=== PATIENT | female | born 1980 | race Caucasian/White ===

== ENCOUNTER → 2017-11-16 13:52 | Outpatient (CLI) | payer BC, SELFPAY ==
--- NOTE | 2017-11-16 13:54 | US_ITS ---
US transvaginal HISTORY: ITS.REASON: US T/V- Heavy Bleeding ORDERING PHYSICIAN: Shani Murray MD PATIENT AGE: 37 years Comparison: None FINDINGS: The uterus is retroverted and measures 9 x 4 x 6 cm. Endometrium is thickened measuring up to 14 mm in thickness. Defects are present along each aspect of the uterus consistent with scars. These defects result in a somewhat irregular contour of the uterine wall anteriorly and of the underlying endometrial cavity The right ovary is 3.3 x 2.7 cm containing small follicles. The left ovary is 2.6 x 2.7 cm and contains small follicles.. Ovarian blood flow is present. No dominant cyst. No cul-de-sac fluid. IMPRESSION: Retroverted uterus with endometrial thickening
[2017-11-16 15:09] LABS: Basophils # 0.1 K/mm3 (0-0.2); Basophils % 0.8 % (0.1-2.0); Eosinophils # 0.2 K/mm3 (0.0-0.4); Eosinophils % 3.9 % (0.1-12.0); Hematocrit 40.7 % (37.0-47.0); Hemoglobin 12.8 g/dL (12.2-16.2); Lymphocytes # 1.9 K/mm3 (0.7-4.5); Lymphocytes % 32.7 K/mm3 (10-50); Mean Corpuscular HGB Conc 31.3 g/dL (31.8-35.4); Mean Corpuscular Hemoglobin 27.6 pg (27.0-31.2); Mean Corpuscular Volume 88.3 fl (81-99); Mean Platelet Volume 7.2 fl (7.4-10.4); Monocytes # 0.3 K/mm3 (0.1-1.0); Monocytes % 5.9 % (1.7-9.3); Neutrophils # 3.2 K/mm3 (1.8-7.8); Neutrophils % 56.6 % (37.0-80.0); Platelet Count 282 K/mm3 (142-424); Red Blood Count 4.61 M/mm3 (4.20-5.40); Red Cell Distribution Width 13.9 % (11.5-17.5); White Blood Count 5.7 K/mm3 (4.8-10.8)
[2017-11-16 17:44] LABS: Thyroid Stimulating Hormone 2.55 uIU/ml (0.358-3.740)
[2017-11-18 20:25] LABS: FSH 2.5 mIU/mL (.)
== END ==
PROVIDERS: PCP Family Medicine; Visit Provider Obstetrics & Gynecology
DX: N92.0 Excessive and frequent menstruation with regular cycle (principal)
CPT/HCPCS: 36415; 76830; 83001; 84443; 85025

== ENCOUNTER → 2017-12-22 13:54 | Outpatient (CLI) | payer BC, SELFPAY ==
--- NOTE | 2017-12-22 14:18 | US_ITS ---
US Arterial Ankle Brachial Ind History: Bilateral claudication ORDERING PHYSICIAN: Rod Gunter MD PATIENT AGE: 37 years TECHNIQUE: Segmental pressures obtained of both right and left leg. These are compared to brachial blood pressure to yield index at each level sampled including summary FATMATA. The data sheets from the procedure are available in PACS FINDINGS Rest study only performed today No prior studies available for comparison. Blood pressures reported are in millimeters mercury. RIGHT LEG FATMATA = 1.0. RIGHT LEG TBI=0.9 Brachial BP: 107 Thigh BP: 1:15 Calf BP: 120 Ankle PT: 120 Ankle DP : 116 Digit =107 LEFT LEG FATMATA = 1.0 LEFT LEG TBI= 0.9 Brachial BPD: 114 Thigh BP: 119 Calf BP: 121 Ankle PT:123 Ankle DP: 128 Digit = 105 Pulses and waveforms: Normal IMPRESSION: The ABIs as reported above are within normal limits. Waveforms and pulses are also unremarkable.
== END ==
PROVIDERS: PCP Family Medicine; Visit Provider Family Medicine
DX: M79.604 Pain in right leg (principal)
CPT/HCPCS: 93922

== ENCOUNTER → 2018-01-08 15:34 | Outpatient (CLI) | payer BC, SELFPAY ==
--- NOTE | 2018-01-08 15:39 | XR_ITS ---
EXAM: XR lumbar spine min 4V HISTORY: Low back pain ITS.REASON: SCIATICA OF RT SIDE ORDERING PHYSICIAN: Rod Gunter MD PATIENT AGE: 37 years COMPARISON: None FINDINGS: Normal alignment. No fracture or dislocation. No lytic or blastic change. No significant degenerative change. The disc spaces are preserved. IMPRESSION: No acute finding
== END ==
PROVIDERS: PCP Family Medicine; Visit Provider Family Medicine
DX: M54.31 Sciatica, right side (principal)
CPT/HCPCS: 72110

== ENCOUNTER → 2018-01-18 10:32 | Outpatient (CLI) | payer BC, SELFPAY ==
[2018-01-18 11:03] LABS: Basophils % 0.4 % (0.1-2.0); Eosinophils # 0.1 K/mm3 (0.0-0.4); Eosinophils % 2.1 % (0.1-12.0); Hematocrit 33.8 % (37.0-47.0); Hemoglobin 11.2 g/dL (12.2-16.2); Lymphocytes # 1.4 K/mm3 (0.7-4.5); Lymphocytes % 29.7 K/mm3 (10-50); Mean Corpuscular HGB Conc 33.2 g/dL (31.8-35.4); Mean Corpuscular Hemoglobin 28.4 pg (27.0-31.2); Mean Corpuscular Volume 85.7 fl (81-99); Mean Platelet Volume 7.1 fl (7.4-10.4); Monocytes # 0.3 K/mm3 (0.1-1.0); Monocytes % 5.9 % (1.7-9.3); Neutrophils % 61.9 % (37.0-80.0); Platelet Count 267 K/mm3 (142-424); Red Blood Count 3.94 M/mm3 (4.20-5.40); Red Cell Distribution Width 14.3 % (11.5-17.5); White Blood Count 4.9 K/mm3 (4.8-10.8)
[2018-01-18 11:59] LABS: Anion Gap 13.6 mEq/L (5-15); Blood Urea Nitrogen 12 mg/dL (7-18); Calcium 8.8 mg/dL (8.5-10.1); Carbon Dioxide 25 mmol/L (21.0-32.0); Chloride 107 mmol/L (98-107); Creatinine,Serum 0.96 mg/dL (0.55-1.02); Estimated Glomerular Filt Rate 66 ml/min (>60); GFR (African American) 80 ML/MIN (>60); Glucose 89 mg/dL (74-106); Potassium 3.6 mmoL/L (3.5-5.1); Sodium 142 mmol/L (136-145)
[2018-01-18 12:23] LABS: HCG Qualitative, Serum Negative (Negative)
== END ==
PROVIDERS: Visit Provider Obstetrics & Gynecology
DX: Z01.818 Encounter for other preprocedural examination (principal)
CPT/HCPCS: 36415; 80048; 84703; 85025

== ENCOUNTER → 2018-01-20 12:46 | Outpatient (CLI) | payer BC, SELFPAY | PROVIDERS: Visit Provider Obstetrics & Gynecology | DX: Z01.818 Encounter for other preprocedural examination (principal) | CPT/HCPCS: 36415; 86850 ==

== ENCOUNTER 2018-01-22 06:09 | Inpatient (IN) ==
--- NOTE | 2018-01-22 07:19 | Progress Note ---
[facility] Anesthesia Checklist - Patient Identification Patient Identification: Arm Band, Verbal (Name & ) - Structural Data Admitted From: Home Planned Operative Procedure/s: STEPHANIE, possible BSO Consent for Planned Operative Procedure(s) Verified: Yes Verified Documents: Surgical Consent, History and Physical - NPO Status Verified Time NPO: 23:30 - Additional verifications Patient : No Anesthesia Reactions: No - Airway Assessment C-Spine Mobility Assessed: Yes TMJ Mobility Assessed: Yes Dentition: Dentures-good fit (Upper denture) - Neurological Assessment Level of Consciousness: Awake Hx Seizures: No Numbness or tingling in extremities: No - Anesthesia Plan Anesthesia Risk discussed: Yes Anesthesia Plan: Verified ASA Class: III Anesthesia Type: General [facility] Anesthesia HX I have reviewed the patient's past medical history: Yes Medical History: Reports:: Anxiety, Asthma, Depression, Supraventricular Tachycardia Denies:: Cancer, Diabetes Mellitus Type 1, Diabetes Mellitus Type 2 ( gestational diabetes), MRSA, Seizures Other Medical History: Reports: FibromyalgiaComment Only: Blood Transfusion Reaction (N/A) Laterality Cases: Bilateral: Tonsillectomy, Other Other Surgeries: Yes: Appendectomy, , Dilation and Curettage, Other Amputation: No Fractures: No *Family Hx:: Diabetes, Cancer, Hypertension, Stroke, Thyroid Disorder
--- NOTE | 2018-01-22 10:34 | Progress Note ---
[facility] Anesthesia Record Part I Intake, IV Amount: 1,500 Estimated blood loss (mL): 350 Urine output (mL): 0 Blood Pressure: 139/79 SaO2: 98 Pulse Rate: 97 Respiratory Rate: 12 Temperature: 97.5 F Patient is:: Awake, Drowsy, Stable Stable to PACU at:: 10:25
--- NOTE | 2018-01-22 10:34 | Progress Note ---
[facility] Anesthesia Record Part II Discharge Time: 10:55 Destination: Medical Surgical Department PACU nurse assessment reviewed?: Yes Patient Condition:: Good Anesthesia Complications:: None
--- NOTE | 2018-01-22 10:51 | Operative Note ---
Date of procedure: 01/22/18 Pre-op Diagnosis:: 1. HMB 2. Severe dysmenorrhea 3. Chronic pelvic pain 4. Fibromyalgia 5. Previous c section x 4 6. Previous ruptured ectopic 7. Abdominal/ pelvic adhesions 8. Antiphospholipid antibody syndrome 9. Anemia from chronic blood loss 10. Previous (failed) endometrial ablation Post-op Diagnosis:: 1. HMB 2. Severe dysmenorrhea 3. Chronic pelvic pain 4. Fibromyalgia 5. Previous c section x 4 6. Previous ruptured ectopic 7. Abdominal/ pelvic adhesions 8. Antiphospholipid antibody syndrome 9. Anemia from chronic blood loss 10. Previous (failed) endometrial ablation 11. Endometriosis Procedure performed:: 1. STEPHANIE 2. RSO 3. Lysis of dense pelvic and abdominal adhesions Surgeon:: Shani Murray MD Casket Assembler(s):: Ulises Conde MD BLOCK MACHINE OPERATOR:: Other Anesthesia: GETA (+ TAP block postoperatively) Estimated blood loss (mL): 350 Operative findings:: Dense pelvic/abdominal adhesions, with anterior uterus adhesed >50% to abdominal wall, diffuse endometriosis of right ovary/fallopian tube and within pelvis, grossly normal appearing left ovary Operative note:: The patient was taken to the operating room where general anesthesia was administered without difficulty. She was prepped and draped in the normal sterile fashion in the supine position. A Pfannenstiel skin incision was made with a scalpel and the area of prior incisions, and extended down to the fascia sharply. The fascia was noticed to be densely adhesed to the underlying peritoneum and omental structures, and dissection of these adhesions in order to gain access into the peritoneal cavity was extensive and took approximately 25 minutes. Once the peritoneal cavity was entered safely the fascia was able to be extended further in the lateral direction, and the rectus muscles were sharply dissected off the fascia. Additional omental adhesions were taken down at this time in order to safely place an abdominal retractor; this dissection took approximately 15 minutes. Because the uterus was densely adhesed to the anterior abdominal wall retractor could not be placed initially due to the inability to place the inferior aspect of the retractor intraperitoneally. Dissection of the uterus off of the abdominal wall was carried out over the next 20 minutes with careful attention to the bladder area; no complications were encountered during this dissection. Once the uterus was freed from the abdominal wall and an O'Nathan-O'Aguirre retractor placed and the bowel was packed with moist laparotomy sponges. A double-tooth tenaculum was placed on the uterine fundus and the uterus was elevated. Survey of the remainder of the pelvis showed a diffuse amount of endometriosis with an extensive amount on the right ovary which however the left ovary appeared grossly normal. Bladder adhesions over the lower uterine segment were moderate but were taken down with success using both blunt and sharp dissection of the next 10 minutes. At this time the round ligaments were doubly clamped transected and suture ligated with 0 Vicryl. The ureters were identified as they course over the pelvic brim and was noted to be well out of the operative field. The infundibulopelvic ligaments were doubly clamped transected and suture ligated with 0 Vicryl; the decision was made at this time to remove the right ovary due to the extensive amount of the endometriosis and the finding that much of this much of these lesions were overlying vascular structures that were not amenable to cautery. The right ovary and fallopian tubes were removed and sent for pathology. The anterior leaf of the broad ligament was dissected medially and inferiorly bilaterally and the bladder flap was created digitally. Bladder flap was dissected as sufficiently as necessary and the attention was then turned to the uterine arteries were skeletonized bilaterally doubly clamped transected and suture ligated with 0 Vicryl. The hysterectomy proceeded in standard fashion with a series of progressive Shahid inferior clamps down through the uterine body until the cardinal and uterosacral ligaments were reached. Once the tissue had been transected below the level of the cervix and the vaginal mucosa was entered the uterus and cervix were amputated with scissors and a specimen was sent for pathology. The vaginal cuff was closed with 0 Vicryl revealed sutures on the angle which were transfixed to the ipsilateral cardinal and uterosacral ligaments. The remainder of the foot was closed with 0 Vicryl interrupted sutures. The pelvis and abdomen were copiously irrigated with warm normal saline and cleared of all clot and debris. There is a moderate amount of oozing from various structures that was treated with a combination of Juan and Surgicel. The surgical site was observed for a prolonged period of time to ensure hemostasis and no active bleeding was noted. All instruments and laparotomy sponges were then removed from her pelvis and abdomen the peritoneum was closed with 2-0 Vicryl in a running fashion. The fascia was closed with 1-0 Vicryl in a running fashion. The subcutaneous fat was closed with 2-0 Vicryl in an interrupted fashion, and the skin was closed with norma. The patient tolerated the procedure well sponge lap needle and instrument counts wee correct 2; she was taken to the recovery room awake and in stable condition. Total time spent in lysis of dense adhesions: 60 minutes Condition: stable Disposition: PACU Specimens:: uterus, cervix, right ovary, right fallopian tube Complications:: none
--- NOTE | 2018-01-22 14:17 | Pharmacy Consult Notes ---
[facility] Pharmacy VTE Monitoring - Patient Demographics Admission date: 01/22/18 Report Date: 01/22/18 Time: 14:17 Allergies/Adverse Reactions: Patient Allergies venlafaxine [From Effexor] Allergy (Severe, Verified 01/22/18 06:30) Anaphylaxis Latex, Natural Rubber Allergy (Verified 01/22/18 06:30) Itching metoclopramide [From Reglan] Adverse Reaction (Severe, Verified 01/22/18 06:30) Irritability,chest pain,nausea,shortness of breath aripiprazole [From Abilify] Adverse Reaction (Verified 01/22/18 06:30) "Lost Strength became a Zombie" Penicillins Adverse Reaction (Verified 01/22/18 06:30) Nausea Only promethazine Adverse Reaction (Verified 01/22/18 06:30) Irritability Height: 1.7 m Weight: 83.915 kg Patient Problems: Current Active Problems Anemia due to blood loss, chronic (Acute) Antiphospholipid antibody syndrome (Acute) Intra-abdominal adhesions (Acute) Pelvic adhesions (Acute) Endometriosis (Acute) - Prophylaxis VTE Prophylaxis Ordered?: Yes Types of VTE Prophylaxis: IPCS Thigh High Location of Applied Device: Bilateral Lower Extremeties - VTE Diagnosis Confirmed Treatment or plan recommended: Continue Current Treatment
[2018-01-23 05:43] LABS: Hematocrit 26.7 % (37.0-47.0); Hemoglobin 8.6 g/dL (12.2-16.2)
[2018-01-23 05:53] LABS: Anion Gap 7.6 mEq/L (5-15); Calcium 7.6 mg/dL (8.5-10.1); Potassium 3.6 mmoL/L (3.5-5.1)
--- NOTE | 2018-01-23 16:01 | Progress Note ---
Internal Medicine - PN: Subj *Date: 01/23/18 *Time: 15:56 Interval history: POD #1 STEPHANIE/RSO, MATT No complaints this am Tolerating po and ambulating Sawyer recently removed but has not voided yet Sufficient pain control Hgb 8.6 this am (admission dose 11.2 but likely hemoconcentrated) Intra-operative EBL 350cc Needs to have anti-psychotic restarted Lovenox prophylaxis for anti-phospholipid antibody syndrome Exam Vital signs and Labs for Last 24 Hours: Temp Pulse Resp BP Pulse Ox 97 F L 64 18 115/67 100 01/23/18 12:45 01/23/18 12:45 01/23/18 12:45 01/23/18 12:45 01/23/18 12:45 Laboratory Results - last 24 hr 01/22/18 07:50: Urine Color Yellow, Urine Appearance Clear, Urine pH 6.0, Ur Specific [place] 1.025, Urine Protein Negative, Urine Glucose (UA) Negative, Urine Ketones Negative, Urine Blood Negative, Urine Nitrate Negative, Urine Bilirubin Negative, Urine Urobilinogen 0.2, Ur Leukocyte Esterase Negative, Urine RBC None, Urine WBC Occasional, Ur Squamous Epith Cells Occasional, Urine Bacteria Trace 01/23/18 05:07: Hgb 8.6 L, Hct 26.7 L 01/23/18 05:07: Sodium 141, Potassium 3.6, Chloride 109 H, Carbon Dioxide 28, Anion Gap 7.6, BUN 11, Creatinine 0.86, Estimated Creat Clear 121, Estimated GFR 75, Est GFR ( Amer) 91, Glucose 114 H, Calcium 7.6 L I & O for Last 24 hours: Intake & Output 01/21/18 01/22/18 01/23/18 01/24/18 11:59 11:59 11:59 11:59 Intake Total 1600 / 1600 1114 / 1114 Output Total 250 / 250 1375 / 1375 Balance 1350 / 1350 -261 / -261 Weight 185 lb - Constitutional no acute distress - *Routine HEENT Exam Eye: Absent: conjunctival icterus, scleral injection ENT: Present: mucous membranes moist - *Routine Respiratory Exam Present: CTA bilaterally. Absent: respiratory distress - *Routine Cardiovascular Exam Present: RRR. Absent: tachycardia - *Routine Abdominal Exam Present: soft. Absent: tenderness, distended Comments: dressing dry/intact - *Routine Extremities Exam Absent: edema, calf tenderness - *Routine Skin Exam Present: intact, dry - *Routine Neurological Exam Present: alert, oriented X3, normal speech. Absent: altered mental status - Routine Psychiatric Exam Present: normal affect. Absent: auditory hallucinations, visual hallucinations Assessment and Plan (1) H/O hysterectomy with oophorectomy Problem details: RSO Current visit: Yes Status: Acute Category: Surgical (2) Anemia associated with acute blood loss Current visit: Yes Status: Acute Category: Medical Code(s): D62 - Acute posthemorrhagic anemia (3) Anemia due to blood loss, chronic Current visit: Yes Status: Acute Category: Medical Code(s): D50.0 - Iron deficiency anemia secondary to blood loss (chronic) (4) Antiphospholipid antibody syndrome Current visit: Yes Status: Acute Category: Medical Code(s): D68.61 - Antiphospholipid syndrome (5) Intra-abdominal adhesions Current visit: Yes Status: Acute Category: Medical Code(s): K66.0 - Peritoneal adhesions (postprocedural) (postinfection) (6) Pelvic adhesions Current visit: Yes Status: Acute Category: Medical Code(s): N73.6 - Female pelvic peritoneal adhesions (postinfective) (7) Endometriosis Current visit: Yes Status: Acute Category: Medical Code(s): N80.9 - Endometriosis, unspecified (8) Pelvic pain in female Current visit: Yes Status: Acute Category: Medical Code(s): R10.2 - Pelvic and perineal pain (9) History of ectopic Current visit: Yes Status: Acute Category: Medical Code(s): Z87.59 - Personal history of other complications of , childbirth and the puerperium (10) Fibromyalgia Current visit: Yes Status: Acute Category: Medical Code(s): M79.7 - Fibromyalgia (11) History of section Problem details: x4 Current visit: Yes Status: Acute Category: Surgical Code(s): Z98.891 - History of uterine scar from previous surgery (12) Severe dysmenorrhea Current visit: Yes Status: Acute Category: Medical Code(s): N94.6 - Dysmenorrhea, unspecified (13) Heavy menstrual bleeding Current visit: Yes Status: Acute Category: Medical Code(s): N92.0 - Excessive and frequent menstruation with regular cycle (14) Paranoid schizophrenia Current visit: Yes Status: Acute Category: Medical Code(s): F20.0 - Paranoid schizophrenia - Assessment and plan all Dx Assessment and Plan for all problems:: Continue routine postop care Voiding trial, ambulation, regular diet May d/c IVF when taking sufficient Will maintain heplock until H/H confirmed stable Lovenox for DVT prophylaxis Repeat H/H in am Anti-psychotic restarted today Continue all other home meds Possible discharge tomorrow
[2018-01-24 08:41] LABS: Hematocrit 27.5 % (37.0-47.0); Hemoglobin 8.9 g/dL (12.2-16.2)
--- NOTE | 2018-01-24 17:50 | Progress Note ---
Internal Medicine - PN: Subj *Date: 01/24/18 *Time: 12:47 Interval history: POD #2 Patient was doing well last evening but had complaint of increased pain approx 4am She was given IV dilaudid and had subsequent reaction to this medication with complaints of sweating and dizziness Now that dilaudid has worn off, she is feeling much better and has no new complaints Tolerating regular diet, ambulating and voiding Hgb stable this am 8.9 Exam Vital signs and Labs for Last 24 Hours: Temp Pulse Resp BP Pulse Ox 98.8 F 95 H 18 112/61 99 01/24/18 16:30 01/24/18 16:30 01/24/18 16:30 01/24/18 16:30 01/24/18 16:30 Laboratory Results - last 24 hr 01/24/18 08:32: Hgb 8.9 L, Hct 27.5 L I & O for Last 24 hours: Intake & Output 01/22/18 01/23/18 01/24/18 01/25/18 11:59 11:59 11:59 11:59 Intake Total 1600 / 1600 1114 / 1114 2433 / 2433 Output Total 250 / 250 1375 / 1375 1950 / 1950 Balance 1350 / 1350 -261 / -261 483 / 483 Weight 185 lb - Constitutional no acute distress - *Routine Respiratory Exam Absent: respiratory distress - *Routine Cardiovascular Exam Present: RRR - *Routine Abdominal Exam Present: soft, normoactive bowel sounds. Absent: tenderness, distended - *Routine Extremities Exam Absent: edema, calf tenderness - *Routine Skin Exam Present: dry, warm. Absent: rash - *Routine Neurological Exam Present: alert, oriented X3. Absent: altered mental status Assessment and Plan (1) H/O hysterectomy with oophorectomy Problem details: RSO Current visit: Yes Status: Acute Category: Surgical (2) Anemia associated with acute blood loss Current visit: Yes Status: Acute Category: Medical Code(s): D62 - Acute posthemorrhagic anemia (3) Anemia due to blood loss, chronic Current visit: Yes Status: Acute Category: Medical Code(s): D50.0 - Iron deficiency anemia secondary to blood loss (chronic) (4) Antiphospholipid antibody syndrome Current visit: Yes Status: Acute Category: Medical Code(s): D68.61 - Antiphospholipid syndrome (5) Intra-abdominal adhesions Current visit: Yes Status: Acute Category: Medical Code(s): K66.0 - Peritoneal adhesions (postprocedural) (postinfection) (6) Pelvic adhesions Current visit: Yes Status: Acute Category: Medical Code(s): N73.6 - Female pelvic peritoneal adhesions (postinfective) (7) Endometriosis Current visit: Yes Status: Acute Category: Medical Code(s): N80.9 - Endometriosis, unspecified (8) Pelvic pain in female Current visit: Yes Status: Acute Category: Medical Code(s): R10.2 - Pelvic and perineal pain (9) History of ectopic Current visit: Yes Status: Acute Category: Medical Code(s): Z87.59 - Personal history of other complications of , childbirth and the puerperium (10) Fibromyalgia Current visit: Yes Status: Acute Category: Medical Code(s): M79.7 - Fibromyalgia (11) History of section Problem details: x4 Current visit: Yes Status: Acute Category: Surgical Code(s): Z98.891 - History of uterine scar from previous surgery (12) Severe dysmenorrhea Current visit: Yes Status: Acute Category: Medical Code(s): N94.6 - Dysmenorrhea, unspecified (13) Heavy menstrual bleeding Current visit: Yes Status: Acute Category: Medical Code(s): N92.0 - Excessive and frequent menstruation with regular cycle (14) Paranoid schizophrenia Current visit: Yes Status: Acute Category: Medical Code(s): F20.0 - Paranoid schizophrenia - Assessment and plan all Dx Assessment and Plan for all problems:: continue routine postop care anticipate discharge home in am
[2018-01-25 07:05] LABS: Hematocrit 25.5 % (37.0-47.0); Hemoglobin 8.3 g/dL (12.2-16.2)
--- NOTE | 2018-01-25 13:00 | Discharge Summary ---
General - General Admission date:: 01/22/18 Discharge date: 01/25/18 HPI HPI: POD #3 s/p STEPHANIE/RSO, MATT Ambulating, tolerating regular diet and voiding without difficulty H/H stable, vitals and exam normal Hospital Course Hospital Course: as noted in HPI Objective Vital signs: Temp Pulse Resp BP Pulse Ox 98.3 F 100 H 18 114/57 97 01/25/18 08:00 01/25/18 08:00 01/25/18 08:00 01/25/18 08:00 01/25/18 08:00 no acute distress - *Routine Respiratory Exam Present: CTA bilaterally. Absent: respiratory distress - *Routine Abdominal Exam Absent: tenderness, distended, guarding - *Routine Extremities Exam Absent: edema, calf tenderness - *Routine Skin Exam Absent: rash - *Routine Neurological Exam Present: alert, oriented X3 - Routine Psychiatric Exam Present: normal affect. Absent: depressed, anxious Results Labs on day of discharge: Labs from last 24 hours 01/25/18 06:43 Hgb 8.3 L Hct 25.5 L DS: Diagnosis - Discharge Diagnosis (1) H/O hysterectomy with oophorectomy Status: Acute Problem details: RSO (2) Anemia associated with acute blood loss Status: Acute (3) Anemia due to blood loss, chronic Status: Acute (4) Antiphospholipid antibody syndrome Status: Acute (5) Intra-abdominal adhesions Status: Acute (6) Pelvic adhesions Status: Acute (7) Endometriosis Status: Acute (8) Pelvic pain in female Status: Acute (9) History of ectopic Status: Acute (10) Fibromyalgia Status: Acute (11) History of section Status: Acute Problem details: x4 (12) Severe dysmenorrhea Status: Acute (13) Heavy menstrual bleeding Status: Acute (14) Paranoid schizophrenia Status: Acute Discharge Plan - Patient Discharge Instructions ACTIVITY: Continue current activity, Limited activity (no intercourse or douching (pelvic rest)), No heavy lifting (>30 lbs) DIET: regular diet Additional Instructions: FOLLOW-UP WITH DR. SAINZ ON DRIVING FOR 2 WEEKS NO HEAVY LIFTING NOTHING IN VAGINA FOR 6 WEEKS Patient Instructions: How to Care for a Surgical Wound, Hysterectomy -- Open Surgery, Surgical Site Infection - Follow up Plan Follow up with: Shani Sainz MD [Staff Physician] - Disposition: Home, Self-Correction Medications: Home Medications Medication Instructions Recorded Confirmed Type aspirin 81 mg chewable tablet 81 mg PO DAILY 11/10/17 01/23/18 History bupropion HCl XL 300 mg 24 hr 300 mg PO DAILY 11/10/17 01/23/18 History tablet, extended release topiramate 50 mg tablet 50 mg PO BID 11/10/17 01/22/18 History ziprasidone 20 mg capsule 20 mg PO DAILY 11/10/17 01/22/18 History ziprasidone 40 mg capsule 40 mg PO HS 11/10/17 01/23/18 History Sertraline HCl [Zoloft 50mg tablet] 100 mg PO HS 01/19/18 01/23/18 History Prescriptions/Medication Reconciliation: New Ibuprofen [Motrin 400mg tablet] 400 mg PO Q4HP PRN tablet PRN Reason: Mild Pain Oxycodone HCl [OxyIR 5mg tablet] 5 mg PO Q4HP PRN #40 tab PRN Reason: Severe Pain Enoxaparin Sodium [Lovenox 40mg/0.4mL syringe] 40 mg SQ DAILY syringe Continue bupropion HCl XL 300 mg 24 hr tablet, extended release 300 mg PO DAILY topiramate 50 mg tablet 50 mg PO BID ziprasidone 20 mg capsule 20 mg PO DAILY ziprasidone 40 mg capsule 40 mg PO HS aspirin 81 mg chewable tablet 81 mg PO DAILY Sertraline HCl [Zoloft 50mg tablet] 100 mg PO HS
== END 2018-01-25 13:30 | disposition home or self-care (01) ==
LOC: 2ND → OBSVTOIN 06:09 → EDSTATUS 07:30 → OB 11:00
PROVIDERS: ADMIT Obstetrics & Gynecology; ATTEND Obstetrics & Gynecology
CPT/HCPCS: 36415; 80048; 81001; 85014; 85018; 94761; 96374; J2405; S0077

== ENCOUNTER → 2018-03-14 11:50 | Outpatient (CLI) | payer SELFPAY ==
[2018-03-14 12:14] LABS: Hematocrit 36.1 % (37.0-47.0); Hemoglobin 11.4 g/dL (12.2-16.2)
== END ==
PROVIDERS: PCP Family Medicine; Visit Provider Obstetrics & Gynecology
DX: Z48.89 Encounter for other specified surgical aftercare (principal)
CPT/HCPCS: 36415; 85014; 85018

== ENCOUNTER → 2019-02-07 11:28 | Outpatient (CLI) | payer OTHER, SELFPAY ==
[2019-02-07 11:48] LABS: Adenovirus F 40/41, stool Not Detected (NotDetected); Astrovirus Not Detected (NotDetected); Campylobacter Not Detected (NotDetected); Clostridium Difficile A/B, PCR Not Detected (NotDetected); Cryptosporidium Not Detected (NotDetected); Cyclospora Cayetanesis Not Detected (NotDetected); Entamoeba histolytica Not Detected (NotDetected); Enteroaggregative E coli Not Detected (NotDetected); Enteropathogenic E coli Not Detected (NotDetected); Enterotoxigenic E coli Not Detected (NotDetected); Giardia lamblia Not Detected (NotDetected); Norovirus Not Detected (NotDetected); Plesimonas Shigalloides, PCR Not Detected (NotDetected); Rotavirus A Not Detected (NotDetected); Salmonella, PCR Not Detected (NotDetected); Sapovirus Not Detected (NotDetected); Shiga-like toxin E coli Not Detected (NotDetected); Shigella Enterovasive E coli Not Detected (NotDetected); Vibrio Cholerae Not Detected (NotDetected); Vibrio, PCR Not Detected (NotDetected); Yersinia Entercolitica, PCR Not Detected (NotDetected)
== END ==
PROVIDERS: Visit Provider Nurse Practitioner Family
DX: R19.7 Diarrhea, unspecified (principal)
CPT/HCPCS: 87506

== ENCOUNTER → 2019-03-07 13:37 | Outpatient (CLI) | payer OTHER, SELFPAY ==
[2019-03-07 13:54] LABS: Basophils % 0.6 % (0.1-2.0); Eosinophils # 0.2 K/mm3 (0.0-0.4); Eosinophils % 2.9 % (0.1-12.0); Hematocrit 41.6 % (37.0-47.0); Hemoglobin 13.1 g/dL (12.2-16.2); Lymphocytes # 1.9 K/mm3 (0.7-4.5); Lymphocytes % 34.5 % (10-50); Mean Corpuscular HGB Conc 31.5 g/dL (31.8-35.4); Mean Corpuscular Hemoglobin 29.4 pg (27.0-31.2); Mean Corpuscular Volume 93.4 fl (81-99); Mean Platelet Volume 7.9 fl (7.4-10.4); Monocytes # 0.4 K/mm3 (0.1-1.0); Monocytes % 6.5 % (1.7-9.3); Neutrophils % 55.5 % (37.0-80.0); Platelet Count 283 K/mm3 (142-424); Red Blood Count 4.45 M/mm3 (4.20-5.40); Red Cell Distribution Width 13.6 % (11.5-17.5); White Blood Count 5.4 K/mm3 (4.8-10.8)
[2019-03-07 14:52] LABS: Alanine Aminotransferase 12 U/L (12-78); Albumin/Globulin Ratio 1.1 (1.1-1.8); Alkaline Phosphatase 87 U/L (46-116); Anion Gap 12.7 mEq/L (5-15); Aspartate Amino Transferase 7 U/L (15-37); Bilirubin,Total 0.4 mg/dL (0.2-1.0); Blood Urea Nitrogen 13 mg/dL (7-18); Calcium 9.6 mg/dL (8.5-10.1); Carbon Dioxide 27 mmol/L (21.0-32.0); Chloride 104 mmol/L (98-107); Chol/HDL Ratio 3.5 (1-3.5); Cholesterol 134 mg/dL (140-200); Creatinine,Serum 0.81 mg/dL (0.55-1.02); Estimated Glomerular Filt Rate 80 ml/min (>60); GFR (African American) 96 ML/MIN (>60); Globulin 3.6 gm/dl (1.3-3.2); Glucose 83 mg/dL (74-106); HDL Cholesterol 38 mg/dL (29-89); LDL Cholesterol 83 mg/dL (0-130); Potassium 3.7 mmoL/L (3.5-5.1); Sodium 140 mmol/L (136-145); Thyroid Stimulating Hormone 3.24 uIU/ml (0.358-3.740); Total Protein,Serum 7.6 gm/dL (6.4-8.2); Triglycerides 63 mg/dL (30-200); VLDL Cholesterol 13 mg/dL (0-40)
[2019-03-09 13:48] LABS: Vitamin D 25 Hydroxy 39.9 ng/mL (30.0-100.0)
== END ==
PROVIDERS: Visit Provider Nurse Practitioner Family
DX: R53.83 Other fatigue (principal)
CPT/HCPCS: 80053; 80061; 82652; 84436; 84443; 85025

== ENCOUNTER → 2020-04-30 17:53 | Outpatient (CLI) | payer BC, SELFPAY ==
[2020-04-30 18:34] LABS: Basophils # 0.1 K/mm3 (0-0.2); Basophils % 0.8 % (0.1-2.0); Eosinophils # 0.3 K/mm3 (0.0-0.4); Eosinophils % 4.9 % (0.1-12.0); Hematocrit 40.2 % (37.0-47.0); Hemoglobin 13.5 g/dL (12.2-16.2); Lymphocytes # 1.8 K/mm3 (0.7-4.5); Lymphocytes % 27.1 % (10-50); Mean Corpuscular HGB Conc 33.6 g/dL (31.8-35.4); Mean Corpuscular Hemoglobin 31.5 pg (27.0-31.2); Mean Corpuscular Volume 93.7 fl (81-99); Mean Platelet Volume 8.1 fl (7.4-10.4); Monocytes # 0.4 K/mm3 (0.1-1.0); Monocytes % 6.2 % (1.7-9.3); Platelet Count 287 K/mm3 (142-424); Red Blood Count 4.29 M/mm3 (4.20-5.40); Red Cell Distribution Width 14.3 % (11.5-17.5); White Blood Count 6.5 K/mm3 (4.8-10.8)
[2020-04-30 18:58] LABS: Alanine Aminotransferase 9 U/L (12-78); Albumin/Globulin Ratio 1.3 (1.1-1.8); Alkaline Phosphatase 93 U/L (38-126); Anion Gap 12.2 mEq/L (5-15); Aspartate Amino Transferase 17 U/L (14-36); Bilirubin,Total 0.2 mg/dl (0.2-1.3); Blood Urea Nitrogen 11 mg/dl (7-17); Calcium 9.7 mg/dl (8.4-10.2); Carbon Dioxide 25 mmol/L (22.0-30.0); Chloride 105 mmol/L (98-107); Chol/HDL Ratio 4.6 (1-3.5); Cholesterol 157 mg/dl (140-200); Estimated Glomerular Filt Rate 80 ml/min (>60); GFR (African American) 97 ML/MIN (>60); Glucose 89 mg/dl (74-100); HDL Cholesterol 34 mg/dl (40-60); Potassium 4.2 mmoL/L (3.5-5.1); Sodium 138 mmol/L (136-145); Triglycerides 300 mg/dl (30-150); VLDL Cholesterol 60 mg/dL (0-40)
[2020-04-30 19:09] LABS: Direct LDL Cholesterol 87.06 mg/dL (100-129)
[2020-04-30 19:14] LABS: Free T4 (Free Thyroxine) 0.79 ng/dl (0.78-2.19)
[2020-04-30 19:30] LABS: Thyroid Stimulating Hormone 4.19 uIU/mL (0.465-4.68)
== END ==
PROVIDERS: Visit Provider Nurse Practitioner Family
DX: R63.5 Abnormal weight gain (principal); M79.7 Fibromyalgia
CPT/HCPCS: 80053; 80061; 84439; 84443; 85025

== ENCOUNTER → 2020-09-18 14:19 | Outpatient (CLI) | payer BC, SELFPAY ==
--- NOTE | 2020-09-18 14:24 | XR_ITS ---
PROCEDURE: XR KNEE RT 4V CLINICAL INDICATION: Right knee pain COMPARISON: No exams were available for comparison FINDINGS: No fracture or dislocation. No lytic or blastic change. There is normal mineralization. The joint spaces are well-preserved. No significant degenerative/arthritic changes. No erosive changes evident. Other findings:There may be a small suprapatellar effusion. There is minimal spurring along the lateral aspect the patella. IMPRESSION: Minimal spurring along the patella with possible small knee joint effusion Dictated by: Slava Gould MD 09/18/2020 16:00 Slava Gould MD in [place] 09/18/2020 16:00
== END ==
PROVIDERS: PCP Nurse Practitioner Family; Visit Provider Orthopaedic Surgery
DX: M25.561 Pain in right knee (principal)
CPT/HCPCS: 73564

== ENCOUNTER 2020-10-09 12:21 | Outpatient (RCR) | payer BC, SELFPAY | END 2020-10-09 13:00 | disposition home or self-care (01) | LOC: PT 12:21 | PROVIDERS: Visit Provider Orthopaedic Surgery | DX: M22.41 Chondromalacia patellae, right knee (principal) | CPT/HCPCS: 97010; 97014; 97035; 97110; 97760; G0283 ==

== ENCOUNTER 2020-11-05 09:30 | Outpatient (RCR) | payer BC, SELFPAY ==
--- NOTE | 2020-09-29 11:32 | [facility].PTOPEV ---
PT Outpatient Evaluation Rehab PT Outpatient Evaluation Start: 09/29/20 10:14 Freq: Status: Active Protocol: Document 09/29/20 11:19 SUKI (Rec: 09/29/20 11:32 PHORNAEL [id number]) Electronically Signed By Bakari Magana, PT 09/29/20 11:19 Outpatient Therapy Subjective History Subjective History Pt is 40 yowf who presents with c/o pain in the R knee x ~ 1.5 yrs with insidious onset of symptoms. Her pain is worse with walking, standing and squatting. She reports pain is constant aching with intermittent sharp pains. She states, Every step I take it pops and sends a sharp pain through my knee. Chief Complaint Pain,Stiff Symptom Type Ache,Sharp Symptoms Relieved By Rest/Positioning Symptoms Aggravated By Standing,Physical Activity, Walking Prior Functional Limitations None Current Functional Limitations Standing,Squatting,Recreation Activity,Walking Symptom Description Constant but Variable Level of pain today (0-10) 4 Pain scale - at its worst (0-10) 8 Hip/Knee Eval Gait Observation General Gait Pattern Observation Antalgic Gait Palpation Tenderness right Knee Palpation Finding Tenderness Knee Palpation Overall Comment medial patella MMT bilateral Hip Flexion Strength Grade 5 Normal Hip Abduction Strength Grade 5 Normal Hip Adduction Strength Grade 5 Normal Hip Extension Strength Grade 5 Normal Gluteus Parrish Strength Grade 5 Normal Knee Extension Strength Grade 5 Normal Knee Flexion Strength Grade 5 Normal ROM right Knee Extension Active Range of Motion ( 0 degrees) Knee Extension Passive Range of Motion ( 0 degrees) Knee Flexion Active Range of Motion ( 0-93 degrees) Knee Flexion Passive Range of Motion ( 0-120 degrees) Special Tests Knee Apley Compression Test Negative Left,Negative Right Knee Anterior Drawer Test Negative Left,Negative Right Knee Anterior Bonny Test Negative Left,Negative Right Knee Posterior Sag (Breaks Drawer) Test Negative Left,Negative Right Knee Valgus Stress Test Negative Left,Negative Right Knee Varus Stress Test Negative Left,Negative Right Patellar Grind Test Negative Left,Positive Right Patellar Compression Test Negative Left,Positive Right Outpatient Therapy Assessment Impairments Problems/Impairmments Palpation Tenderness,Impaired
== END 2020-11-05 09:35 | disposition home or self-care (01) ==
LOC: PT 09:30
PROVIDERS: PCP Nurse Practitioner Family; Visit Provider Orthopaedic Surgery
DX: M22.41 Chondromalacia patellae, right knee (principal)
CPT/HCPCS: 97010; 97014; 97035; 97110; 97140; 97163; G0283

== ENCOUNTER → 2020-11-16 11:43 | Outpatient (CLI) | payer BC, SELFPAY | PROVIDERS: Visit Provider Obstetrics & Gynecology | DX: N39.0 Urinary tract infection, site not specified (principal) | CPT/HCPCS: 87086; 87088; 87186 ==